=== PATIENT | female | born 1980 | race Caucasian/White ===

== ENCOUNTER 2018-08-04 10:32 | Emergency (ER) | payer OTHER, MEDICARE ==
[~2018-08-04] VITALS: Ht 175.3 cm; Wt 84.4 kg
[~2018-08-04 10:32] MED LIST: ABILIFY1 MG/ML IM; ACETAMINOPHEN-H1 TA1 PO; ALPRAZOLAM1 MG PO; BRINTELLIX5 MG PO; CEPHALEXIN500 M3 PO; CIPROFLOXACIN500 MG PO; CLEOCIN HCL300 M1 PO; CORTISPORIN 1%-10 M1 AS; DILAUDID2 MG PO; KETOROLAC TROME10 M1 PO; LAMICTAL 100MG100 MG PO; MACROBID100 MG PO; METHADONE10 MG/5 ML PO; NAPROXEN500 M2 PO; PERCOCET 325 MG1 TA2 PO; ROBAXIN-750750 M1 PO; VICODIN 300 MG-1 TAB PO; ZOFRAN 4 MG TABL4 MG PO
[2018-08-04 10:43] VITALS: BP 141/86
--- NOTE | 2018-08-04 11:26 | ED HAND/WRIST INJURY COMPLAINT ---
History of Present Illness General Chief Complaint: General Adult Stated Complaint: 3RD AND 4TH DIGIT INJURY BROKEN? Source: patient Exam Limitations: no limitations Vital Signs & Intake/Output Vital Signs & Intake/Output Vital Signs Date Time Temp Pulse Resp B/P B/P Pulse O2 O2 Flow FiO2 Mean Ox Delivery Rate 08/04 1043 97.6 57 15 141/86 96 Room Air Room Air Allergies Coded Allergies: Sulfa (Sulfonamide Antibiotics) ([facility] 08/04/18) Reconcile Medications No Known Home Medications Triage Note: PT TO ED FOR C/C OF L 3RD AND 4TH FINGERS (KNOWN FRACTURE FROM 2 WEEKS AGO); NEEDS A REFERRAL TO SEE AN ORTHOPEDIC DOCTOR. Triage Nurses Notes Reviewed? yes : No Patient currently breastfeeds: No HPI: Pt is a 38 y/o F PMHX CKD presenting with a left hand injury x 2 weeks. Pt states she was playing with her children when she fell down and hyperextended the fingers of her left hand. [facility]. She was told that there are fractures within her third and fourth left fingers and that she wouild most liekly need surgery. Pt was told that her insurance would not be accepted and she needed to find another hand surgeon. Pt admits to loss of ROM, pain and paresthesias. Pt took off the splint last night because it was irritating her skin. Past History Travel History Traveled to [place] past 21 day No Medical History Any Pertinent Medical History? none Neurological: NONE EENT: NONE Cardiovascular: NONE Respiratory: NONE Gastrointestinal: NONE Hepatic: NONE Renal: CKD Musculoskeletal: NONE Psychiatric: anxiety, depression, substance abuse, BIPOLAR PTSD POLYSUBSTANCE ABUSE Endocrine: NONE Blood Disorders: NONE Cancer(s): NONE RATOPRINTER/Reproductive: NONE Surgical History Surgical History: RECONSTRUCTIVE SURGERY KIDNEYS Psychosocial History Who do you live with Family What is your primary language Danish Tobacco Use: Current Not Daily ETOH Use: denies use Illicit Drug Use: denies illicit drug use Family History Hx Contributory? Yes Review of Systems Review of Systems Constitutional: Denies: see HPI. Musculoskeletal: Reports: see HPI. Neurological/Psychological: Reports: see HPI. Physical Exam Physical Exam General Appearance: well developed/nourished, no apparent distress Head: atraumatic, normal appearance Wrist Left: normal range of motion, normal inspection Hand Left: lacerations, There is swelling to the third and fourth fingers. No swelling noted to the volar or dorsal aspects of palm. Loss of ROM in DIP, PIP, MCP joints of third and fourth fingers. sensation intact diffusely. Cap refill < 2 sec. scaling of skin noted on fingers. Hand Right: normal inspection, deformity Progress Differential Diagnosis: contusion, dislocation, fracture Plan of Care: Referral to plastics versus orthopedics Comments: Patient presents several weeks after hand injury with known fracture and recommendation for surgery at an outside institution, after insurance issues prevented follow-up. I paged our plastic surgery attending to ask what the best course of action would be to get her the care she needs. Continually, he was coming to the emergency department to see another patient and stopped by to evaluate Florinda. He recommends follow-up at [facility] given the complex nature of her fracture, and rotation of her digits with the delay in repair. He feels that she needs a higher level of care, so I have referred her accordingly. Discharged in stable condition. Departure Departure Time of Disposition: 1227 Disposition: HOME OR SELF CARE Condition: Stable Clinical Impression Primary Impression: Finger fracture Qualifiers: Encounter type: initial encounter Finger: middle finger Fracture type: closed Phalanx: unspecified phalanx Fracture alignment: displaced Laterality: left Qualified Code: S62.603A - Fracture of unspecified phalanx of left middle finger, initial encounter for closed fracture Referrals: Patient Has No Primary Care Dr (PCP/Family) Additional Instructions: Our plastic surgeon came to evaluate you at the bedside but unfortunately he does not feel that we have the capabilities to deal with this fracture at [facility]. Please call [facility] for referral to one of their orthopedic or plastic surgeons who specializes in hand surgery, at [phone] for referral. They may require that you see a primary care physician for referral, depending on your insurance, so I have included the contact information for one of our primary physicians so you can make that appointment. It is important that you know how critical follow-up is for the long-term function of her hand. Departure Forms: Customer Survey General Discharge Information Prescriptions: Current Visit Scripts No Known Home Medications
--- NOTE | 2018-08-04 12:53 | Cons- Plastic Surgery ---
General Information and HPI Consulting Request Date of Consult: 08/04/18 Requested By: dr vargas Reason for Consult: Fracture long and ring finger left hand Source of Information: patient (md) History of Present Illness: Right hand dominant patient fell from a rope swing approximately 2 weeks ago. Seen in emergency room and in orthopedic office who said she needed surgery. Patient presents today possibly for coordination issues with evaluation and treatment? Patient has some discomfort in the area. States she is unable to flex the fingers and has removed her splint. No other complaints. Allergies/Medications Allergies: Coded Allergies: Sulfa (Sulfonamide Antibiotics) ([facility] 08/04/18) Home Med List: No Known Home Medications Past History Medical History Neurological: NONE EENT: NONE Cardiovascular: NONE Respiratory: NONE Gastrointestinal: NONE Hepatic: NONE Renal: CKD Musculoskeletal: NONE Psychiatric: anxiety, depression, substance abuse, BIPOLAR PTSD POLYSUBSTANCE ABUSE Endocrine: NONE Blood Disorders: NONE Cancer(s): NONE QUALITY REVIEW SPECIALIST/Reproductive: NONE Surgical History Pertinent Surgical History: RECONSTRUCTIVE SURGERY KIDNEYS Psychosocial History ETOH Use: denies use Illicit Drug Use: denies illicit drug use Review of Systems Review of Systems: All other systems negative Exam & Diagnostic Data Vital Signs and I&O Vital Signs Date Time Temp Pulse Resp B/P B/P Pulse O2 O2 Flow FiO2 Mean Ox Delivery Rate 08/04 1043 97.6 57 15 141/86 96 Room Air Room Air Intake & Output 08/04 1600 08/04 0800 08/04 0000 08/03 1600 08/03 0800 08/03 0000 Intake Total 0 Output Total Balance 0 Intake, Oral 0 Patient 186 lb Weight Weight Reported by Patient Measurement Method Physical Exam: Left ring and long fingers with some mild edema no ecchymosis. Point tenderness over the distal proximal phalanges of both the ring and long fingers. There is some rotational deformity at the tip of the long finger, NVI, limitied flexion. Assessment/Plan Assessment/Plan Patient did not bring x-rays nor has she had any performed here. Likely due to referral by Dr. Grant stating the patient required surgery and the fact she has already had 2 sets of x-rays performed no need for third. Patient likely needs surgical intervention/consideration with hardware. Discussed options of repair and time line. She was given phone numbers for [facility] to call immediately. Gave care instructions in the meantime. Discussed with Dr Vargas. Consult Acknowledgment - Thank you for your consult request.
== END 2018-08-04 13:19 ==
LOC: ERH 10:32
DX: S62.603A Fracture of unspecified phalanx of left middle finger, initial encounter for closed fracture (principal); S62.605A Fracture of unspecified phalanx of left ring finger, initial encounter for closed fracture; W19.XXXD Unspecified fall, subsequent encounter